=== PATIENT | male | born 1985 | race Two or more races ===

== ENCOUNTER 2018-12-22 00:19 | Emergency (ER) | payer MEDICAID ==
[~2018-12-22] VITALS: Ht 188 cm; Wt 100.0 kg
[2018-12-22 04:55] VITALS: BP 115/92
[2018-12-22] MEDS ORDERED: IBUPROFEN 600MG TABLET PO ONE (05:00)
== END 2018-12-22 05:25 | disposition home or self-care (01) ==
LOC: ER 00:19
DX: S62.397A Other fracture of fifth metacarpal bone, left hand, initial encounter for closed fracture (principal); Y04.0XXA Assault by unarmed brawl or fight, initial encounter; Y93.89 Activity, other specified; Y92.89 Other specified places as the place of occurrence of the external cause; F17.210 Nicotine dependence, cigarettes, uncomplicated; F12.90 Cannabis use, unspecified, uncomplicated; R03.0 Elevated blood-pressure reading, without diagnosis of hypertension
CPT/HCPCS: 29125; 73100; 73130; 99283